=== PATIENT | male | born 2000 | race African-American/Black ===

== ENCOUNTER 2021-07-20 14:50 | Emergency (ER) | payer OTHER ==
[~2021-07-20] VITALS: Ht 172.7 cm; Wt 86.4 kg
[2021-07-20 14:52] VITALS: BP 128/74
[2021-07-20] MEDS ORDERED: LIDOCAINE 2% MDV 20ML VIAL SC ONE (16:15)
[2021-07-20] MEDS ORDERED: CEPH500C PO (16:41)
== END 2021-07-20 16:56 | disposition home or self-care (01) ==
LOC: M ED 14:50
DX: S61.412A Laceration without foreign body of left hand, initial encounter (principal); W26.0XXA Contact with knife, initial encounter; Y92.099 Unspecified place in other non-institutional residence as the place of occurrence of the external cause; Y93.G3 Activity, cooking and baking; Y99.9 Unspecified external cause status